=== PATIENT | female | born 2000 | race Two or more races ===

== ENCOUNTER 2019-02-18 10:00 | Observation (INO) | payer MEDICAID, OTHER ==
[2019-02-18] MEDS ORDERED: PREN-153 PO (10:58)
[2019-02-18 11:21] LABS: Urine Bacteria FEW /hpf (None Seen); Urine Blood Negative /uL (Negative); Urine Mucus FEW (None Seen); Urine Specific Gravity 1.021 (1.001-1.035); Urine WBC 77 /hpf (0 - 5)
[2019-02-19] MEDS ORDERED: CEPH500C PO (17:43)
== END 2019-02-18 12:15 | disposition home or self-care (01) | DRG 566 ==
LOC: LDRP 10:00
PROVIDERS: ADMIT Specialist; ATTEND Specialist
DX: O40.3XX0 Polyhydramnios, third trimester, not applicable or unspecified (principal); Z3A.39 39 weeks gestation of pregnancy
CPT/HCPCS: 76818; 81001; G0378; 59025; 81002

== ENCOUNTER 2019-02-19 16:32 | Observation (INO) | payer MEDICAID ==
[~2019-02-19 16:32] MED LIST: PREN-153 PO
[2019-02-19] MEDS ORDERED: CEPH500C PO (17:43)
== END 2019-02-19 18:10 | disposition home or self-care (01) | DRG 566 ==
LOC: LDRP 16:32
PROVIDERS: ADMIT Specialist; ATTEND Specialist
DX: O41.8X30 Other specified disorders of amniotic fluid and membranes, third trimester, not applicable or unspecified (principal); Z3A.39 39 weeks gestation of pregnancy
CPT/HCPCS: 76818; G0378

== ENCOUNTER 2019-02-20 15:18 | Observation (INO) | payer MEDICAID ==
[~2019-02-20] VITALS: Ht 157.5 cm; Wt 76.2 kg
[~2019-02-20 15:18] MED LIST changes: +CEPH500C PO
[2019-02-20 16:22] LABS: Eosinophils # (auto) 0 uL; Nucleated Red Blood Cells % 0.1 %; Red Blood Cells 3.38 10^6/uL (4.0-5.20)
[2019-02-20 16:24] LABS: Basophils # (auto) 0.1 uL; Basophils % (auto) 0.8 % (0.0-2.0); Eosinophils % (auto) 0.5 % (0.0-7.0); Hematocrit 23.5 % (36.0-46.0); Hemoglobin 7.4 g/dL (12.2-16.2); Lymphocytes # (auto) 1.3 uL; Lymphocytes % (auto) 17.8 % (10.0-50.0); Mean Corpuscular Hemoglobin 21.8 pg (28.0-32.0); Mean Corpuscular Hgb Conc. 31.3 g/dL (32.0-36.0); Mean Corpuscular Volume 69.6 fL (80.0-100.0); Monocytes # (auto) 0.4 uL; Neutrophils # (auto) 5.6 uL; Neutrophils % (auto) 74.9 % (37.0-80.0); Platelet Count (auto) 226 10^3/uL (140-450); Red Cell Distribution Width 19.5 % (11.8-14.3); White Blood Cell 7.4 10^3/uL (4.4-10.8)
[2019-02-20 19:21] VITALS: BP 110/67
[2019-02-20 19:36] VITALS: BP 111/65
[2019-02-20] MEDS ORDERED: diphenhdrAMINE HCL 50 MG/1 ML VL ONE (20:35)
[2019-02-20] MEDS ORDERED: diphenhdrAMINE HCL 50 MG/1 ML VL IV ONE (20:45)
[2019-02-20 21:35] VITALS: BP 120/80
== END 2019-02-20 22:08 | disposition home or self-care (01) | DRG 566 ==
LOC: LDRP 15:18
PROVIDERS: ADMIT Obstetrics & Gynecology; ATTEND Obstetrics & Gynecology
DX: O23.43 Unspecified infection of urinary tract in pregnancy, third trimester (principal); O99.013 Anemia complicating pregnancy, third trimester; Z3A.39 39 weeks gestation of pregnancy
CPT/HCPCS: 36415; 36430; 59025; 76818; 81002; 85025; 86850; 86900; 86901; 86920; G0378; J1200; P9016; 96374

== ENCOUNTER 2019-02-21 16:55 | Observation (INO) | payer MEDICAID ==
[2019-02-21 17:55] LABS: Basophils # (auto) 0 uL; Eosinophils # (auto) 0 uL; Eosinophils % (auto) 0.5 % (0.0-7.0); Lymphocytes # (auto) 1.4 uL; Lymphocytes % (auto) 20.9 % (10.0-50.0); Mean Corpuscular Hemoglobin 21.9 pg (28.0-32.0); Monocytes # (auto) 0.4 uL; Neutrophils # (auto) 4.7 uL
[2019-02-21 17:57] LABS: Basophils % (auto) 0.6 % (0.0-2.0); Hematocrit 26.5 % (36.0-46.0); Hemoglobin 8.3 g/dL (12.2-16.2); Mean Corpuscular Hgb Conc. 31.2 g/dL (32.0-36.0); Mean Corpuscular Volume 70.3 fL (80.0-100.0); Monocytes % (auto) 6.4 % (0.0-12.0); Neutrophils % (auto) 71.6 % (37.0-80.0); Nucleated Red Blood Cells % 0.1 %; Platelet Count (auto) 243 10^3/uL (140-450); Red Blood Cells 3.76 10^6/uL (4.0-5.20); Red Cell Distribution Width 19.7 % (11.8-14.3); White Blood Cell 6.6 10^3/uL (4.4-10.8)
[2019-02-21] MEDS ORDERED: IRON SUCROSE COMPLEX 200 MG in SODIUM CHL 0.9% 100 ML IV ONE (18:00)
[2019-02-21 18:09] LABS: Albumin 2.6 g/dL (3.4-5.0); Calcium 8.4 mg/dL (8.5-10.1); Potassium 3.5 mmol/L (3.5-5.1)
[2019-02-21 18:12] LABS: Urine Bacteria MOD /hpf (None Seen); Urine Blood Negative /uL (Negative); Urine Mucus FEW (None Seen); Urine WBC 9 /hpf (0 - 5)
[2019-02-21 18:13] LABS: BUN/Creatinine Ratio 11.3
[2019-02-21 18:15] LABS: Bilirubin, Total 0.2 mg/dL (0.2-1.0); Total Protein 6.4 g/dL (6.4-8.2)
[2019-02-22] MEDS ORDERED: IRON SUCROSE COMPLEX 200 MG in SODIUM CHL 0.9% 100 ML IV ONE (12:00)
== END 2019-02-21 20:06 | disposition home or self-care (01) | DRG 566 ==
LOC: LDRP 16:55
PROVIDERS: ADMIT Specialist; ATTEND Specialist
DX: O99.013 Anemia complicating pregnancy, third trimester (principal); O26.893 Other specified pregnancy related conditions, third trimester; N89.8 Other specified noninflammatory disorders of vagina; O48.0 Post-term pregnancy; Z3A.40 40 weeks gestation of pregnancy
CPT/HCPCS: 36415; 59025; 80053; 81001; 85025; 96365; G0378; J1756

== ENCOUNTER 2019-02-27 10:58 | Inpatient (IN) | payer MEDICAID ==
[~2019-02-27] VITALS: Ht 157.5 cm; Wt 76.2 kg
[2019-02-27] MEDS ORDERED: LACT. RINGERS/OXYTOCIN 20UNITS 1,000 ML IV SCH (11:14)
[2019-02-27] MEDS ORDERED: TERBUTALINE SULFATE 1 MG/ML 1ML VIAL SC ONE (11:15)
[2019-02-27] MEDS ORDERED: DERMOPLAST 60ML BOTTLE TOP PRN (11:15)
[2019-02-27] MEDS ORDERED: LIDOCAINE 2%HCL (LOCAL ANESTH.) INJ 20ML MDV ID ONE (11:15)
[2019-02-27] MEDS ORDERED: WITCH HAZEL-GLYCERIN PAD TOP PRN (11:15)
[2019-02-27] MEDS ORDERED: PROMETHAZINE HCL 25 MG/ML 1ML IV PRN (11:15)
[2019-02-27] MEDS ORDERED: PHISODERM TOP SOLN 240ML BTL TOP PRN (11:15)
[2019-02-27] MEDS: LACTATED RINGER'S 1,000 ML IV SCH ×2 (11:26→15:07)
[2019-02-27 12:25] LABS: Basophils # (auto) 0 uL; Eosinophils # (auto) 0 uL; Neutrophils # (auto) 5.2 uL; Nucleated Red Blood Cells % 0.1 %
[2019-02-27] MEDS: LACT. RINGERS/OXYTOCIN 20UNITS 1,000 ML IV SCH (12:26)
[2019-02-27 12:30] LABS: Basophils % (auto) 0.4 % (0.0-2.0); Eosinophils % (auto) 0.5 % (0.0-7.0); Hematocrit 26.2 % (36.0-46.0); Hemoglobin 8.2 g/dL (12.2-16.2); Lymphocytes # (auto) 1.7 uL; Lymphocytes % (auto) 22.5 % (10.0-50.0); Mean Corpuscular Hgb Conc. 31.4 g/dL (32.0-36.0); Mean Corpuscular Volume 73.2 fL (80.0-100.0); Monocytes # (auto) 0.5 uL; Monocytes % (auto) 6.3 % (0.0-12.0); Neutrophils % (auto) 70.3 % (37.0-80.0); Platelet Count (auto) 217 10^3/uL (140-450); Red Blood Cells 3.58 10^6/uL (4.0-5.20); White Blood Cell 7.4 10^3/uL (4.4-10.8)
[2019-02-27 12:31] LABS: Urine Bacteria FEW /hpf (None Seen); Urine Blood 1+ /uL (Negative); Urine Specific Gravity 1.008 (1.001-1.035); Urine WBC 13 /hpf (0 - 5)
[2019-02-27 12:36] LABS: INR < 0.93 (0.9-1.15); Partial Thromboplastin Time 25.7 sec (23.64-32.05)
[2019-02-27 12:37] LABS: Albumin 2.5 g/dL (3.4-5.0); BUN/Creatinine Ratio 9.1; Calcium 8.3 mg/dL (8.5-10.1); Potassium 3.7 mmol/L (3.5-5.1)
[2019-02-27 12:39] LABS: Red Cell Distribution Width 20.6 % (11.8-14.3)
[2019-02-27 12:40] LABS: Bilirubin, Total 0.3 mg/dL (0.2-1.0); Total Protein 5.7 g/dL (6.4-8.2)
[2019-02-27] MEDS: NALBUPHINE HCL 10 MG/1ml INJECTION IV PRN ×2 (15:02→18:10)
[2019-02-27] MEDS ORDERED: LACTATED RINGER'S 500 ML IV ONE (17:50)
[2019-02-27] MEDS ORDERED: NALOXONE HCL 0.4 MG/ML VIAL IV ONE ×2 (18:00→21:15)
[2019-02-27] MEDS ORDERED: fentaNYL W ROPIVACAINE 150 ML EPI SCH ×2 (18:00→21:15)
[2019-02-27] MEDS ORDERED: ePHEDrine SULFATE 50 MG/ML AMP IV ONE ×2 (18:00→21:15)
[2019-02-27] MEDS ORDERED: SODIUM CHLORIDE 0.9% 500 ML IV PRN (21:01)
[2019-02-28] MEDS: LACT. RINGERS/OXYTOCIN 20UNITS 1,000 ML IV SCH (01:43)
[2019-02-28] MEDS ORDERED: LACT. RINGERS/OXYTOCIN 20UNITS 500 ML IV ONE (02:09)
[2019-02-28] MEDS ORDERED: ACETAMINOPHEN 325 MG TAB PO PRN ×2 (02:15→05:00)
[2019-02-28] MEDS ORDERED: IBUPROFEN 600 MG TAB PO PRN (02:15)
[2019-02-28] MEDS ORDERED: LACT. RINGERS/OXYTOCIN 20UNITS 1,000 ML IV SCH (03:09)
--- NOTE | 2019-02-28 03:50 | NUR ---
Ambulation: Epidural catheter removed with blue tip intact and bandage applied. Patient OOB with standby assistance by RN. Patient ambulated to bathroom with steady gait. Patient able to void without difficulty. [facility]icare teaching provided with returned demonstration by patient. Clean gown provided and bed linen changed. Patient ambulated back to bed with steady gait and no distress noted.
--- NOTE | 2019-02-28 04:47 | NUR ---
MARGA Pierre made aware of temp of 100.4. Orders to give Tylenol 650mg q4h and to continue to monitor temp. No further orders at this time.
[2019-02-28 06:50] VITALS: BP 101/65
[2019-02-28 11:05] VITALS: BP 104/69
[2019-02-28 11:55] LABS: RPR Non Reactive (Non Reactive)
[2019-02-28] MEDS: FERROUS SULFATE 325 MG TAB PO SCH ×2 (12:21→22:34)
--- NOTE | 2019-02-28 12:30 | NUR ---
Teaching: Reviewed information in [facility] booklet with patient. Discussed benefits of and risks associated with not . Discussed different positions, proper latch, feeding cues, and baby-led . Provided information of medication side effects related to . All questions and concerns addressed at this time. Patient verbalized understanding of information.
[2019-02-28 15:30] VITALS: BP 103/62
[2019-02-28 19:00] VITALS: BP 106/64
[2019-02-28 23:00] VITALS: BP 100/53
[2019-03-01 03:00] VITALS: BP 97/47
[2019-03-01 06:50] VITALS: BP 119/65
--- NOTE | 2019-03-01 07:30 | NUR ---
Discharge: Discharge instructions given as ordered. Pt encouraged to follow up with HOUSEHOLD COORDINATOR as instructed. All questions and concerns addressed. Patient verbalized understanding. Medication reconciliation completed and copy given to patient. Patient refused t-dap vaccine. Patient encouraged to prepare to depart unit.
--- NOTE | 2019-03-01 09:00 | NUR ---
CALLED DR. NATHAN AT [id number] TO MAKE AWARE OF DISCHARGE. ALECIA OB BREADMAN SPOKE WITH DR. NATHAN'S BREADMAN AND SHE STATES SHE WILL LET HIM KNOW.
[2019-03-01] MEDS: FERROUS SULFATE 325 MG TAB PO SCH (10:28)
[2019-03-01 11:30] VITALS: BP 110/70
[2019-03-01 15:27] VITALS: BP 105/67
--- NOTE | 2019-03-01 15:38 | NUR ---
Discharge: Patient taken to vehicle via ambulation with all personal belongings, accompanied by staff Rose Mary and family member. No distress noted at time of departure, no adverse changes in status since initial assessment.
== END 2019-03-01 15:38 | disposition home or self-care (01) | DRG 560 ==
LOC: LDRP 10:58 → OBSVTOIN 10:58 → LDRP 02-28 07:01
PROVIDERS: ADMIT Specialist; ATTEND Specialist
PROC: 3E0R3BZ Introduction of Anesthetic Agent into Spinal Canal, Percutaneous Approach (ICD-10-PCS; 2019-02-27)
PROC: 00HU33Z Insertion of Infusion Device into Spinal Canal, Percutaneous Approach (ICD-10-PCS; 2019-02-27)
PROC: 10E0XZZ Delivery of Products of Conception, External Approach (ICD-10-PCS; principal; 2019-02-28)
DX: O48.0 Post-term pregnancy (principal); O41.03X0 Oligohydramnios, third trimester, not applicable or unspecified; O76 Abnormality in fetal heart rate and rhythm complicating labor and delivery; O70.9 Perineal laceration during delivery, unspecified; Z37.0 Single live birth; Z3A.41 41 weeks gestation of pregnancy
CPT/HCPCS: 36415; 51702; 59025; 59409; 80053; 81001; 81002; 84112; 85025; 85610; 85730; 86592; 86850; 86900; 86901; 96361; 96375; G0378; J2590; J3010

== ENCOUNTER → 2021-07-13 | Outpatient (CLI) | payer MEDICAID ==
[~2021-07-13] MED LIST changes: -CEPH500C PO; -PREN-153 PO; +PREN1TAB71 PO
[2021-07-13 08:55] LABS: Basophils # (auto) 0.1 10 ^3/uL (0-0.2); Basophils % (auto) 0.8 % (0.0-2.0); Eosinophils # (auto) 0.1 10 ^3/uL (0-0.8); Eosinophils % (auto) 0.7 % (0.0-7.0); Hematocrit 25.6 % (36.0-46.0); Lymphocytes # (auto) 2.5 10 ^3/uL (0.4-5.4); Lymphocytes % (auto) 25.3 % (10.0-50.0); Mean Corpuscular Hemoglobin 20.9 pg (28.0-32.0); Mean Corpuscular Hgb Conc. 31.2 g/dL (32.0-36.0); Mean Corpuscular Volume 66.9 fL (80.0-100.0); Monocytes # (auto) 0.7 10 ^3/uL (0-1.3); Monocytes % (auto) 6.9 % (0.0-12.0); Neutrophils # (auto) 6.4 10 ^3/uL (1.6-8.6); Neutrophils % (auto) 66.3 % (37.0-80.0); Nucleated Red Blood Cells % 0.1 %; Red Blood Cells 3.82 10^6/uL (4.0-5.20); Red Cell Distribution Width 19.4 % (11.8-14.3); White Blood Cell 9.7 10^3/uL (4.4-10.8)
[2021-07-14 06:06] LABS: RPR Non Reactive (Non Reactive)
== END | disposition home or self-care (01) ==
LOC: LAB 08:13
PROVIDERS: ATTEND Obstetrics & Gynecology
DX: Z34.80 Encounter for supervision of other normal pregnancy, unspecified trimester (principal)
CPT/HCPCS: 36415; 82951; 84112; 85025; 86592

== ENCOUNTER 2021-08-10 11:15 | Observation (INO) | payer MEDICAID | END 2021-08-10 13:48 | disposition home or self-care (01) | LOC: LDRP 11:15 | PROVIDERS: ADMIT Obstetrics & Gynecology; ATTEND Obstetrics & Gynecology | DX: O48.0 Post-term pregnancy (principal); O62.9 Abnormality of forces of labor, unspecified; O34.63 Maternal care for abnormality of vagina, third trimester; N89.8 Other specified noninflammatory disorders of vagina; Z3A.40 40 weeks gestation of pregnancy | CPT/HCPCS: 59025; 76818; 81002; G0378 ==

== ENCOUNTER 2021-08-11 22:48 | Inpatient (IN) | payer MEDICAID ==
[~2021-08-11] VITALS: Ht 157.5 cm; Wt 75.7 kg
[2021-08-11] MEDS ORDERED: LACTATED RINGER'S 1,000 ML IV SCH (23:15)
[2021-08-11] MEDS ORDERED: PROMETHAZINE HCL 25 MG/ML 1ML IV PRN (23:15)
[2021-08-11] MEDS ORDERED: DERMOPLAST 60ML BOTTLE TOP PRN (23:15)
[2021-08-11] MEDS ORDERED: PENICILLIN G POT 5MIL/D5 50ML 50 ML IV ONE (23:15)
[2021-08-11] MEDS ORDERED: LIDOCAINE 2%HCL (LOCAL ANESTH.) INJ 20ML MDV IJ PRN (23:15)
[2021-08-11] MEDS ORDERED: BUTORPHANOL TARTRATE 2 MG/1 ML VIAL IV PRN ×2 (23:15)
[2021-08-11] MEDS ORDERED: WITCH HAZEL-GLYCERIN PAD TOP PRN (23:15)
[2021-08-11] MEDS ORDERED: PHISODERM TOP SOLN 240ML BTL TOP PRN (23:15)
[2021-08-11] MEDS ORDERED: CARBOPROST TROMETHAMINE 250 MCG/1ML VIAL IM PRN (23:30)
[2021-08-11] MEDS ORDERED: LACT. RINGERS/OXYTOCIN 20UNITS 1,000 ML IV SCH (23:30)
[2021-08-11] MEDS ORDERED: METHYLERGONOVINE MALEATE 0.2 MG/ML AMP IM PRN (23:30)
[2021-08-11] MEDS ORDERED: ONDANSETRON HCL 4 MG/2 ML VIAL IV PRN (23:30)
[2021-08-11] MEDS ORDERED: miSOPROStol 100 mcg TAB SL PRN (23:30)
[2021-08-11] MEDS ORDERED: miSOPROStol 100 mcg TAB PR PRN (23:30)
[2021-08-11] MEDS ORDERED: TERBUTALINE SULFATE 1 MG/ML 1ML VIAL SC PRN (23:30)
[2021-08-11] MEDS ORDERED: LACT. RINGERS/OXYTOCIN 20UNITS 500 ML IV ONE (23:30)
[2021-08-12] MEDS ORDERED: LACT. RINGERS/OXYTOCIN 20UNITS 500 ML IV ONE
[2021-08-12 00:03] LABS: Basophils # (auto) 0.1 10 ^3/uL (0-0.2); Basophils % (auto) 0.5 % (0.0-2.0); Eosinophils # (auto) 0 10 ^3/uL (0-0.8); Eosinophils % (auto) 0.3 % (0.0-7.0); Hematocrit 24.8 % (36.0-46.0); Hemoglobin 7.7 g/dL (12.2-16.2); Lymphocytes % (auto) 25.1 % (10.0-50.0); Mean Corpuscular Hemoglobin 19.8 pg (28.0-32.0); Mean Corpuscular Hgb Conc. 30.9 g/dL (32.0-36.0); Mean Corpuscular Volume 64.3 fL (80.0-100.0); Monocytes # (auto) 0.6 10 ^3/uL (0-1.3); Monocytes % (auto) 5.1 % (0.0-12.0); Neutrophils # (auto) 8.2 10 ^3/uL (1.6-8.6); Nucleated Red Blood Cells % 0.2 %; Red Blood Cells 3.86 10^6/uL (4.0-5.20); Red Cell Distribution Width 19.8 % (11.8-14.3); White Blood Cell 11.9 10^3/uL (4.4-10.8)
[2021-08-12 00:11] LABS: INR 0.9 (0.9-1.15); Partial Thromboplastin Time 24.5 sec (23.6-33.0)
[2021-08-12 00:18] LABS: Albumin 2.8 g/dL (3.4-5.0); Calcium 8.8 mg/dL (8.5-10.1); Potassium 3.4 mmol/L (3.5-5.1)
[2021-08-12 00:20] LABS: BUN/Creatinine Ratio 10.5
[2021-08-12 00:23] LABS: Amphetamine Screen, Urine NEGATIVE (NEGATIVE); Barbiturate Scree,Urine NEGATIVE (NEGATIVE); Benzodiazephine Screen, Urine NEGATIVE (NEGATIVE); Cannabinoid Screen, Urine NEGATIVE (NEGATIVE); Cocaine Screen, Urine NEGATIVE (NEGATIVE); Opiate Scree,Urine NEGATIVE (NEGATIVE); Phencyclidine Screen, Urine NEGATIVE (NEGATIVE)
[2021-08-12 00:28] LABS: Bilirubin, Total 0.4 mg/dL (0.2-1.0); Total Protein 6.5 g/dL (6.4-8.2)
[2021-08-12 00:46] LABS: Urine Bacteria FEW /hpf (None Seen); Urine Blood Negative /uL (Negative); Urine Specific Gravity 1.015 (1.001-1.035); Urine Sperm PRESENT /hpf (None Seen); Urine WBC 14 /hpf (0 - 5); Urine WBC Clumps PRESENT /hpf (None Seen)
[2021-08-12] MEDS ORDERED: PENICILLIN G POTASSIUM 2,500,000 UNITS in D5W 5% 50 ML IV SCH (03:15)
[2021-08-12] MEDS ORDERED: IBUPROFEN 600 MG TAB PO PRN (03:30)
[2021-08-12] MEDS ORDERED: ACETAMINOPHEN 325 MG TAB PO PRN (03:30)
[2021-08-12] MEDS ORDERED: ONDANSETRON HCL 4 MG/2 ML VIAL IV PRN (03:30)
[2021-08-12 07:00] VITALS: BP 134/94
[2021-08-12] MEDS ORDERED: DIPHENOXYLATE W/ATROPINE 2.5 MG TAB PO SCH (10:00)
[2021-08-12 14:36] VITALS: BP 115/75
[2021-08-12 18:30] VITALS: BP 115/57
[2021-08-12] MEDS ORDERED: DOCUSATE SOD 100 MG CAP PO SCH (22:00)
[2021-08-12 23:10] VITALS: BP 119/67
[2021-08-12] MEDS: FERROUS SULFATE 325mg EC TAB PO SCH (23:28)
[2021-08-13 03:10] VITALS: BP 116/68
[2021-08-13] MEDS: FERROUS SULFATE 325mg EC TAB PO SCH (06:56)
[2021-08-13 07:00] VITALS: BP 111/69
[2021-08-13 07:07] LABS: RPR Non Reactive (Non Reactive)
[2021-08-13 10:45] VITALS: BP 119/74
== END 2021-08-13 11:20 | disposition home or self-care (01) | DRG 861 ==
LOC: LDRP 22:48 → OBSVTOIN 22:48 → LDRP 08-12 05:36
PROVIDERS: ADMIT Obstetrics & Gynecology; ATTEND Obstetrics & Gynecology
PROC: 10E0XZZ Delivery of Products of Conception, External Approach (ICD-10-PCS; principal; 2021-08-12)
DX: Z83.3 Family history of diabetes mellitus (principal); O48.0 Post-term pregnancy; Z37.0 Single live birth; Z20.822 Contact with and (suspected) exposure to COVID-19; Z3A.40 40 weeks gestation of pregnancy; Z80.8 Family history of malignant neoplasm of other organs or systems
CPT/HCPCS: 36415; 59025; 59409; 80053; 80307; 81001; 85025; 85610; 85730; 86592; 86850; 86900; 86901; 87426; 94760; 96360; 96365; 96366; 96372; G0378; J2540; J2590; J7060

== ENCOUNTER → 2023-01-31 | Outpatient (CLI) | payer MEDICAID ==
[2023-01-31 11:49] LABS: Eosinophils # (auto) 0.2 10 ^3/uL (0-0.8); Hemoglobin 8.6 g/dL (12.2-16.2); Lymphocytes # (auto) 2.5 10 ^3/uL (0.4-5.4); Monocytes # (auto) 0.4 10 ^3/uL (0-1.3); Nucleated Red Blood Cells % 0.1 %
[2023-01-31 11:52] LABS: Basophils # (auto) 0 10 ^3/uL (0-0.2); Basophils % (auto) 0.5 % (0.0-2.0); Eosinophils % (auto) 2.2 % (0.0-7.0); Hematocrit 27.8 % (36.0-46.0); Lymphocytes % (auto) 33.8 % (10.0-50.0); Mean Corpuscular Volume 70.9 fL (80.0-100.0); Monocytes % (auto) 5.5 % (0.0-12.0); Neutrophils # (auto) 4.4 10 ^3/uL (1.6-8.6); Red Blood Cells 3.92 10^6/uL (4.0-5.20); Red Cell Distribution Width 17.6 % (11.8-14.3); White Blood Cell 7.5 10^3/uL (4.4-10.8)
[2023-01-31 13:31] LABS: Alcohol, Urine < 3.0 mg/dL (0-10); Amphetamine Screen, Urine NEGATIVE (NEGATIVE); Barbiturate Scree,Urine NEGATIVE (NEGATIVE); Benzodiazephine Screen, Urine NEGATIVE (NEGATIVE); Cannabinoid Screen, Urine NEGATIVE (NEGATIVE); Cocaine Screen, Urine NEGATIVE (NEGATIVE)
[2023-01-31 13:50] LABS: Opiate Scree,Urine NEGATIVE (NEGATIVE); Phencyclidine Screen, Urine NEGATIVE (NEGATIVE)
[2023-02-01 06:06] LABS: RPR Non Reactive (Non Reactive)
[2023-02-01 10:06] LABS: Treponema Pallidum Ab LC Non Reactive (Non Reactive)
[2023-02-02 05:08] LABS: Chlamydia Trachomatis, NAA Negative (Negative); Neisseria gonorrhoeae, NAA Negative (Negative)
[2023-02-02 12:06] LABS: QuantiFERON-TB Gold Plus Negative (Negative)
[2023-02-02 20:06] LABS: Treponema pallidum Ab (FTA-Ab) Non Reactive (Non Reactive)
== END | disposition home or self-care (01) ==
LOC: LAB 10:35
PROVIDERS: ATTEND Obstetrics & Gynecology
DX: Z34.80 Encounter for supervision of other normal pregnancy, unspecified trimester (principal); Z36.0 Encounter for antenatal screening for chromosomal anomalies; N39.0 Urinary tract infection, site not specified; Z72.51 High risk heterosexual behavior; Z3A.00 Weeks of gestation of pregnancy not specified
CPT/HCPCS: 36415; 80307; 83036; 84112; 84144; 84702; 85025; 86592; 86703; 86762; 86850; 86900; 86901; 87086; 87340

== ENCOUNTER → 2023-04-19 | Outpatient (CLI) | payer MEDICAID ==
[2023-04-19 11:42] LABS: Basophils # (auto) 0.1 10 ^3/uL (0-0.2); Eosinophils # (auto) 0.1 10 ^3/uL (0-0.8); Neutrophils # (auto) 5.2 10 ^3/uL (1.6-8.6)
[2023-04-19 11:44] LABS: Basophils % (auto) 1.2 % (0.0-2.0); Eosinophils % (auto) 1.1 % (0.0-7.0); Hematocrit 25.9 % (36.0-46.0); Hemoglobin 7.8 g/dL (12.2-16.2); Lymphocytes # (auto) 1.9 10 ^3/uL (0.4-5.4); Mean Corpuscular Hemoglobin 19.5 pg (28.0-32.0); Mean Corpuscular Volume 64.9 fL (80.0-100.0); Monocytes # (auto) 0.5 10 ^3/uL (0-1.3); Neutrophils % (auto) 66.7 % (37.0-80.0); Nucleated Red Blood Cells % 0.2 %; Red Blood Cells 3.98 10^6/uL (4.0-5.20); Red Cell Distribution Width 19.7 % (11.8-14.3); White Blood Cell 7.7 10^3/uL (4.4-10.8)
[2023-04-19 12:11] LABS: Hypochromia Marked; Platelet Estimate Adequate
[2023-04-20 07:07] LABS: RPR Non Reactive (Non Reactive)
[2023-04-20 10:07] LABS: Treponema Pallidum Ab LC Non Reactive (Non Reactive)
== END | disposition home or self-care (01) ==
LOC: LAB 11:29
PROVIDERS: ATTEND Obstetrics & Gynecology
DX: Z34.80 Encounter for supervision of other normal pregnancy, unspecified trimester (principal); Z3A.00 Weeks of gestation of pregnancy not specified
CPT/HCPCS: 36415; 84112; 85025; 86592

== ENCOUNTER 2023-05-17 10:16 | Observation (INO) | payer MEDICAID ==
[2023-05-17 12:01] LABS: Fern Testing Negative
== END 2023-05-17 12:49 | disposition home or self-care (01) ==
LOC: UNDOADMOB 10:16 → LDRP 10:16 → UNDODISOB 12:49
PROVIDERS: ADMIT Obstetrics & Gynecology; ATTEND Obstetrics & Gynecology
DX: O48.0 Post-term pregnancy (principal); O62.9 Abnormality of forces of labor, unspecified; Z3A.40 40 weeks gestation of pregnancy
CPT/HCPCS: 59025; 76818; 81002; 84112; G0378; Q0114

== ENCOUNTER 2023-05-19 14:40 | Observation (INO) | payer MEDICAID | END 2023-05-19 15:56 | disposition home or self-care (01) | LOC: LDRP 14:40 | PROVIDERS: ADMIT Obstetrics & Gynecology; ATTEND Obstetrics & Gynecology | DX: O48.0 Post-term pregnancy (principal); O62.9 Abnormality of forces of labor, unspecified; Z3A.40 40 weeks gestation of pregnancy | CPT/HCPCS: 59025; 76818; 81002; 94760; G0378 ==

== ENCOUNTER 2023-05-21 18:03 | Observation (INO) | payer MEDICAID | END 2023-05-21 19:44 | disposition home or self-care (01) | LOC: LDRP 18:03 | PROVIDERS: ADMIT Obstetrics & Gynecology; ATTEND Obstetrics & Gynecology | DX: O48.0 Post-term pregnancy (principal); Z3A.40 40 weeks gestation of pregnancy | CPT/HCPCS: 59025; 76818; 81002; 94760; G0378 ==

== ENCOUNTER 2023-05-23 19:35 | Observation (INO) | payer MEDICAID | END 2023-05-23 21:26 | disposition home or self-care (01) | LOC: LDRP 19:35 | PROVIDERS: ADMIT Obstetrics & Gynecology; ATTEND Obstetrics & Gynecology | DX: O48.0 Post-term pregnancy (principal); Z3A.40 40 weeks gestation of pregnancy | CPT/HCPCS: 59025; 76818; 81002; 94760; G0378 ==

== ENCOUNTER 2023-05-24 08:30 | Inpatient (IN) | payer MEDICAID ==
[~2023-05-24] VITALS: Ht 157.5 cm; Wt 75.7 kg
[2023-05-24] MEDS ORDERED: LACT. RINGERS/OXYTOCIN 20UNITS 1,000 ML IV ONE (08:43)
[2023-05-24] MEDS ORDERED: PENICILLIN G POT 5MIL/D5 50ML 50 ML IV ONE ×2 (08:50→09:00)
[2023-05-24] MEDS ORDERED: PHISODERM TOP SOLN 240ML BTL TOP PRN (09:00)
[2023-05-24] MEDS ORDERED: LACTATED RINGER'S 1,000 ML IV SCH (09:00)
[2023-05-24] MEDS ORDERED: DERMOPLAST 60ML BOTTLE TOP PRN (09:00)
[2023-05-24] MEDS ORDERED: PROMETHAZINE HCL 25 MG/ML 1ML IV PRN (09:00)
[2023-05-24] MEDS ORDERED: LIDOCAINE 2%HCL (LOCAL ANESTH.) INJ 20ML MDV IJ PRN (09:00)
[2023-05-24] MEDS ORDERED: WITCH HAZEL-GLYCERIN PAD TOP PRN (09:00)
[2023-05-24 09:20] LABS: Basophils # (auto) 0.1 10 ^3/uL (0-0.2); Eosinophils # (auto) 0 10 ^3/uL (0-0.8); Hemoglobin 8.1 g/dL (12.2-16.2); Lymphocytes # (auto) 2.3 10 ^3/uL (0.4-5.4); Monocytes # (auto) 0.4 10 ^3/uL (0-1.3); Neutrophils # (auto) 6.6 10 ^3/uL (1.6-8.6); White Blood Cell 9.5 10^3/uL (4.4-10.8)
[2023-05-24 09:22] LABS: Basophils % (auto) 0.8 % (0.0-2.0); Eosinophils % (auto) 0.3 % (0.0-7.0); Lymphocytes % (auto) 24.5 % (10.0-50.0); Mean Corpuscular Hemoglobin 18.7 pg (28.0-32.0); Mean Corpuscular Hgb Conc. 29.9 g/dL (32.0-36.0); Mean Corpuscular Volume 62.5 fL (80.0-100.0); Monocytes % (auto) 4.5 % (0.0-12.0); Neutrophils % (auto) 69.9 % (37.0-80.0); Red Blood Cells 4.33 10^6/uL (4.0-5.20)
[2023-05-24 09:29] LABS: Urine Bacteria FEW /hpf (None Seen); Urine Blood Negative /uL (Negative); Urine Clarity Clear (Clear); Urine Color Colorless (Yellow); Urine Protein, UAD Negative (Negative); Urine Specific Gravity 1.014 (1.001-1.035); Urine Sperm PRESENT /hpf (None Seen); Urine Urobilinogen Normal (Negative); Urine WBC 14 /hpf (0 - 5)
[2023-05-24 09:34] LABS: Amphetamine Screen, Urine Neg (NEGATIVE); Barbiturate Scree,Urine Neg (NEGATIVE); Benzodiazephine Screen, Urine Neg (NEGATIVE); Cocaine Screen, Urine Neg (NEGATIVE); Opiate Scree,Urine Neg (NEGATIVE)
[2023-05-24 09:35] LABS: INR 0.9 (0.9-1.15); Partial Thromboplastin Time 24.9 SEC (24.5-34.5); Prothrombin Time 9.5 sec (9.3-11.8)
[2023-05-24 09:35] LABS: Cannabinoid Screen, Urine Neg (NEGATIVE); Phencyclidine Screen, Urine Neg (NEGATIVE)
[2023-05-24 09:37] LABS: Alanine Aminotransferase 28 U/L (7-40); Alkaline Phosphatase 337 U/L (46-116); Anion Gap 9 (5-15); Aspartate Aminotransferase 27 U/L (13-40); BUN/Creatinine Ratio 13.6 (10.0-20.0); Bilirubin, Total 0.6 mg/dL (0.2-1.0); Blood Urea Nitrogen 8 mg/dL (9-23); Calcium 9.2 mg/dL (8.5-10.1); Carbon Dioxide 20 mmol/L (20-30); Chloride 107 mmol/L (98-107); Glucose 85 mg/dL (74-106); Potassium 3.5 mmol/L (3.5-5.1); Sodium 136 mmol/L (136-145); Total Protein 6.5 g/dL (5.7-8.2)
[2023-05-24 09:40] LABS: Red Cell Distribution Width 20.5 % (11.8-14.3)
[2023-05-24 10:44] LABS: Platelet Estimate Adequate
[2023-05-24 10:46] LABS: Anisocytosis Slight; Hypochromia Marked
[2023-05-24] MEDS ORDERED: LACT. RINGERS/OXYTOCIN 20UNITS 500 ML IV ONE ×2 (11:30→12:00)
[2023-05-24] MEDS ORDERED: TERBUTALINE SULFATE 1 MG/ML 1ML VIAL SC PRN (11:45)
[2023-05-24] MEDS ORDERED: LACT. RINGERS/OXYTOCIN 20UNITS 1,000 ML IV SCH (11:45)
[2023-05-24] MEDS ORDERED: PENICILLIN G POTASSIUM 2,500,000 UNITS in D5W 5% 50 ML IV SCH (13:00)
[2023-05-24] MEDS ORDERED: ePHEDrine SULFATE 50 MG/ML AMP ONE (13:13)
[2023-05-24] MEDS ORDERED: ROPIVACAINE HCL 100 ML ONE (13:13)
[2023-05-24] MEDS ORDERED: fentaNYL CITRATE 100 MCG/2 ML VL ONE (13:13)
[2023-05-24] MEDS ORDERED: LIDOCAINE HCL 2 %PF INJ 10ML AMP IJ ONE (13:15)
[2023-05-24] MEDS ORDERED: ePHEDrine SULFATE 50 MG/ML AMP IV ONE (13:15)
[2023-05-24] MEDS ORDERED: fentaNYL CITRATE 100 MCG/2 ML VL IV ONE (13:15)
[2023-05-24] MEDS ORDERED: NALOXONE HCL 0.4 MG/ML VIAL IV ONE (13:15)
[2023-05-24] MEDS ORDERED: fentaNYL 400mCg/200ml W ROPIVA 200 ML EPI SCH (13:15)
[2023-05-24] MEDS ORDERED: miSOPROStol 100 mcg TAB ONE (14:55)
[2023-05-24] MEDS ORDERED: METHYLERGONOVINE MALEATE 0.2 MG/ML AMP IM ONE (14:55)
[2023-05-24] MEDS ORDERED: miSOPROStol 100 mcg TAB SL PRN (15:00)
[2023-05-24] MEDS ORDERED: ACETAMINOPHEN 325 MG TAB PO PRN (15:00)
[2023-05-24] MEDS ORDERED: METHYLERGONOVINE MALEATE 0.2 MG/ML AMP IM PRN (15:00)
[2023-05-24] MEDS ORDERED: miSOPROStol 100 mcg TAB PR PRN (15:00)
[2023-05-24] MEDS ORDERED: IBUPROFEN 600 MG TAB PO PRN (15:00)
[2023-05-24] MEDS ORDERED: ONDANSETRON ODT 4 MG TAB PO PRN (15:00)
[2023-05-24] MEDS ORDERED: ONDANSETRON HCL 4 MG/2 ML VIAL ONE (15:35)
[2023-05-24] MEDS ORDERED: ONDANSETRON HCL 4 MG/2 ML VIAL IV PRN (15:45)
[2023-05-24 19:00] VITALS: BP 120/60; PULSE 74; RESP 18; TEMP 98.5; O2SAT 97
[2023-05-24 19:09] LABS: Basophils # (auto) 0 10 ^3/uL (0-0.2); Eosinophils # (auto) 0 10 ^3/uL (0-0.8); Hemoglobin 7.8 g/dL (12.2-16.2); Lymphocytes # (auto) 1.6 10 ^3/uL (0.4-5.4); Mean Corpuscular Hemoglobin 17.9 pg (28.0-32.0); Red Blood Cells 4.37 10^6/uL (4.0-5.20)
[2023-05-24 19:11] LABS: Basophils % (auto) 0.2 % (0.0-2.0); Mean Corpuscular Hgb Conc. 29.1 g/dL (32.0-36.0); Mean Corpuscular Volume 61.6 fL (80.0-100.0); Monocytes # (auto) 0.6 10 ^3/uL (0-1.3); Monocytes % (auto) 4.1 % (0.0-12.0); Neutrophils # (auto) 13.4 10 ^3/uL (1.6-8.6); Neutrophils % (auto) 85.7 % (37.0-80.0); Nucleated Red Blood Cells % 0.1 %; White Blood Cell 15.6 10^3/uL (4.4-10.8)
[2023-05-24] MEDS: FERROUS SULFATE 325mg EC TAB PO SCH (22:09)
[2023-05-24 23:00] VITALS: BP 111/61; PULSE 71; RESP 18; TEMP 99; O2SAT 99
[2023-05-25] VITALS: BP 111/61; PULSE 71; RESP 18; TEMP 99; O2SAT 99
[2023-05-25 03:00] VITALS: BP 113/71; PULSE 71; RESP 18; TEMP 99; O2SAT 99
[2023-05-25 06:29] LABS: RPR Non Reactive (Non Reactive)
[2023-05-25 07:00] VITALS: BP 119/58; PULSE 66; RESP 16; TEMP 97.8; O2SAT 100
[2023-05-25] MEDS ORDERED: FERR30CA PO (08:20)
[2023-05-25] MEDS ORDERED: IBU600T PO (08:20)
[2023-05-25] MEDS ORDERED: DOCU-94 PO (08:20)
[2023-05-25] MEDS: FERROUS SULFATE 325mg EC TAB PO SCH (10:23)
[2023-05-25 10:58] VITALS: BP 116/56; PULSE 74; RESP 16; TEMP 97.9; O2SAT 98
[2023-05-26 19:06] LABS: Treponema pallidum Ab (FTA-Ab) Non Reactive (Non Reactive)
== END 2023-05-25 15:57 | disposition home or self-care (01) | DRG 560 ==
LOC: OBSVTOIN 08:30 → LDRP 08:30
PROVIDERS: ADMIT Obstetrics & Gynecology; ATTEND Obstetrics & Gynecology
PROC: 10E0XZZ Delivery of Products of Conception, External Approach (ICD-10-PCS; principal; 2023-05-24)
PROC: 10907ZC Drainage of Amniotic Fluid, Therapeutic from Products of Conception, Via Natural or Artificial Opening (ICD-10-PCS; 2023-05-24)
PROC: 3E0R3BZ Introduction of Anesthetic Agent into Spinal Canal, Percutaneous Approach (ICD-10-PCS; 2023-05-24)
PROC: 00HU33Z Insertion of Infusion Device into Spinal Canal, Percutaneous Approach (ICD-10-PCS; 2023-05-24)
PROC: 0HQ9XZZ Repair Perineum Skin, External Approach (ICD-10-PCS; 2023-05-24)
DX: O48.0 Post-term pregnancy (principal); Z37.0 Single live birth; O69.81X0 Labor and delivery complicated by cord around neck, without compression, not applicable or unspecified; Z3A.41 41 weeks gestation of pregnancy; O70.0 First degree perineal laceration during delivery; O99.824 Streptococcus B carrier state complicating childbirth
CPT/HCPCS: 36415; 59025; 59409; 62282; 80053; 80307; 81001; 81002; 85025; 85610; 85730; 86592; 86850; 86900; 86901; 94760; 96360; 96361; 96365; 96366; 96372; G0378; J2405; J2540; J2590; J7060; Q0162